=== PATIENT | female | born 1995 | race Two or more races ===

== ENCOUNTER 2021-11-02 00:18 | Emergency (ER) | payer MEDICAID, OTHER ==
[~2021-11-02] VITALS: Ht 175.3 cm; Wt 149.0 kg
[2021-11-02 00:19] VITALS: BP 153/86
== END 2021-11-02 02:15 | disposition left against medical advice (07) ==
LOC: ER 00:23
DX: R22.0 Localized swelling, mass and lump, head (principal); Z53.21 Procedure and treatment not carried out due to patient leaving prior to being seen by health care provider